=== PATIENT | female | born 1960 | race African-American/Black ===

== ENCOUNTER 2020-02-02 03:09 | Emergency (ER) | payer OTHER, SELFPAY ==
--- NOTE | ~2020-02-02 | CT_ITS ---
EXAMINATION: CT brain wo con INDICATION: Hallucinations COMPARISON: None TECHNIQUE: Standard unenhanced head CT. The dose-length product (DLP) was 605.33 mGy-cm. The mA was a djusted according to patient size. Iterative reconstruction technique was employed. FINDINGS: There is no intracranial hemorrhage, acute infarction, or abnormal mass lesion. The ventric les are normal. There is no abnormal mass effect or midline shift. The goddard-white matter differentiat ion is normal. The basal cisterns are patent. The orbits are normal. The paranasal sinuses, mastoids and calvarium are normal. IMPRESSION: 1. No acute intracranial abnormality. Reviewed, dictated and finalized at location A.
[2020-02-02 03:14] VITALS: BP 154/97; PULSE 88; RESP 13; TEMP 37.1; O2SAT 99
--- NOTE | 2020-02-02 03:52 | ECG_ITS ---
Measurements Intervals [place] Rate: 83 P: 58 PA: 158 QRS: 42 QRSD: 76 T: 23 QT: 371 QTc: 438 Interpretive Statements SINUS RHYTHM NONSPECIFIC T-WAVE ABNORMALITY- ANT/INF LEADS BASELINE WANDER- I, III, V6 BORDERLINE ECG Electronically Signed On 02-02-2020 8:55:53 CDT by Rudy Etienne D.O.
--- NOTE | 2020-02-02 03:53 | ED.GENADULT ---
HPI - General Adult General Chief complaint: Unspecified Stated complaint: hearing voices Time Seen by Provider: 02/02/20 03:15 Source: patient Mode of arrival: ambulatory Limitations: no limitations History of Present Illness HPI narrative: Patient is a 59-year-old female who presents to the emergency department with complaint of problems with her vagal nerve stimulator that she has for her seizure disorder. She states it has been going haywire . She feels as though it is stimulating when it should not and causing static and voices as well as music that she can hear. Patient has been weaned off her Keppra and is currently not on any medication. Patient denies any recent illness symptoms or other complaints at this time other than tight feeling in her legs and numb strange feeling across her body. She also reports having at least 2 seizures over the past week. MD complaint: Vagal nerve stimulator issue and hallucinations Related Data Allergies Allergy/AdvReac Type Severity Reaction Status Date / Time No Known Allergies Allergy Verified 02/02/20 03:22 Review of Systems Review of Systems: All systems reviewed & are unremarkable except as noted in HPI and below ENT: Reports nasal discharge Cardiovascular: Cardiovascular: Denies chest pain Respiratory: Respiratory: Reports cough (Occasional) Gastrointestinal: Gastrointestinal: Denies abdominal pain, Denies diarrhea and Denies vomiting Neurologic: Reports convulsions Psychiatric: Psychiatric: Reports auditory hallucinations PMFSH Past Medical History Medical History (Updated 02/02/20 @ 06:00 by Izzy Claire MD) Seizure disorder Surgical History Surgical History (Updated 02/02/20 @ 04:07 by Izzy Claire MD) History of cholecystectomy Family History Family History (Updated 11/11/17 @ 10:56 by DOCTOR UNKNOWN) Other Diabetes mellitus Family history of malignant neoplasm Social History Social History Smoking status: Never smoker Alcohol intake: never Exam Const: General: cooperative, no acute distress and alert Nutritional Appearance: well nourished Orientation/consciousness: patient oriented x3 Limitations: no limitations HENMT: Mouth: Yes lip normal and Yes moist mucous membranes Eyes: Conjunctivae: conjunctivae normal Pupils: Equal, round and reactive pupils present Resp: Effort & Inspection: normal respiratory effort Auscultation: clear to auscultation bilaterally Cardio: Rate: regular rate Rhythm: regular rhythm GI: GI Palp: Yes Soft to palpation and No Tenderness to palpation present (GI) Auscultation: normal bowel sounds Skin: General skin exam: normal color Neuro: General: patient oriented x3 Cognition (Neuro): normal cognition Speech: normal speech Extrem: General: normal to inspection, full ROM and no clubbing, cyanosis or edema Psych: Mental Status: mental status grossly normal Affect: normal affect Attitude: cooperative Course Course Emergency Course: Patient presents with concerns that stimulator for her seizure disorder is malfunctioning. Patient is reporting auditory hallucinations. Patient does not have any psychiatric history or other psychiatric symptomatology. Patient with no acute abnormalities noted on evaluation aside from mild elevation of creatinine kinase level, likely due to recent seizures this past week. Patient given acetaminophen for mild leg pain associated. Patient started back on Keppra per recommendation of her neurologist and patient is to follow-up in the office for further evaluation. Patient is stable for outpatient management at this time. Consultations Consultation #1: Case discussed with Dr. Pope, patient's neurologist, at length. Reviewed test results and patient symptomatology. Recommended restarting patient on Keppra 500 mg twice daily. Advised patient should call office on Tuesday to arrange for time to be seen when they can have the device rep come
--- NOTE | 2020-02-02 04:45 | PC.NURSE ---
Patient being taken to radiology at this time.
[2020-02-02 04:48] LABS: Basophils Percent Auto 0.4 % (0.2-1.2); Eosinophils Absolute Auto 0.1 K/mm3 (0-0.3); Eosinophils Percent Auto 0.7 % (0-4.4); Hematocrit 41.3 % (37.0-47.0); Hemoglobin 12.1 g/dL (12.0-15.0); Immature Granulocyte Absolute 0.03 K/mm3 (0.00-0.031); Immature Granulocyte Percent A 0.4 % (0-0.5); Lymphocytes Absolute Auto 1.32 K/mm3 (0.9-3.2); Lymphocytes Percent Auto 17.3 % (18.3-44.2); Mean Corpuscular HGB Conc 29.3 g/dl (32-36); Mean Corpuscular Hemoglobin 25.7 pg (26-34); Mean Corpuscular Volume 87.9 fl (80-100); Mean Platelet Volume 10.3 fl (7.4-10.4); Monocytes Absolute Auto 0.5 K/mm3 (0.1-0.6); Monocytes Percent Auto 6.8 % (2.6-8.5); Neutrophils Absolute Auto 5.7 K/mm3 (1.3-6.7); Neutrophils Percent Auto 74.4 % (45.5-73.1); Platelet Count Result 158 k/mm3 (150-375); Red Cell Distribution Width 14.3 % (11.5-14.5); White Blood Count 7.6 K/mm3 (4.5-10.0)
[2020-02-02 04:50] LABS: Add Urine Microscopic? YES; Appearance Urine Clear (Clear); Bilirubin Urine Negative (Negative); Blood Urine Negative (Negative); Color Urine Yellow (Yellow); Glucose Urine UA Negative (Negative); Ketones Urine 1+ mg/dL (Negative); Leukocyte Esterase Ur Negative LEU/UL (Negative); Mucus Urine Rare /lpf; Nitrate Urine Negative (Negative); Protein Urine 1+ mg/dL (Negative); RBC Urine 0-2 /hpf (0-2); Specific Grav Ur 1.027 (1.001-1.035); Squamous Epithelial Cell Urine Occasional /hpf (Few); WBC Urine 0-3 /hpf
[2020-02-02 04:59] LABS: Amphetamine Screen Urine Negative (Negative); Barbiturate Screen Urine Negative (Negative); Benzodiazepines Screen Urine Negative (Negative); Cannabinoid Screen Urine Negative (Negative); Cocaine Screen Urine Negative (Negative); Methadone Screen Urine Negative (Negative); Opiate Screen Urine Negative (Negative); Phencyclidine Screen Urine Negative (Negative)
[2020-02-02 05:15] LABS: Ethanol < 10 mg/dL (<10)
[2020-02-02 05:25] LABS: Alanine Aminotransferase 41 U/L (4-35); Albumin Level 4.4 g/dL (3.5-5.1); Alkaline Phosphatase 100 U/L (38-126); Aspartate Amino Transferase 44 U/L (14-36); Bilirubin,Total 0.7 mg/dL (0.2-1.3); Blood Urea Nitrogen 21 mg/dL (7-17); Calcium 9.3 mg/dL (8.4-10.2); Carbon Dioxide 24 mmol/L (22-30); Chloride 106 mmol/L (98-107); Creatine Kinase 438 U/L (30-135); Estimated Glomerular Filt Rate > 60; Glucose 91 mg/dL (65-105); Magnesium 2.3 mg/dL (1.6-2.3); Sodium 140 mmol/L (137-145)
--- NOTE | 2020-02-02 05:33 | PC.NURSE ---
Patient's daughter states that implant just woke her up out of her sleep, she like jerked. I would really like for someone to take a look at it to see what is going on with it. This nurse informs the patient and her daughter that I will inform the EDP. This nurse informed the patient that we are still waiting for results to come back. EDP informed.
[2020-02-02 05:35] VITALS: BP 155/100; PULSE 81; RESP 18; O2SAT 100
[2020-02-02] MEDS: ACETAMINOPHEN 500 MG TABLET 1000 MG PO (06:11)
[2020-02-02] MEDS: levETIRAcetam 500 MG TABLET PO (06:11)
[2020-02-02 06:31] VITALS: BP 155/95; PULSE 79; RESP 20; O2SAT 100
== END 2020-02-02 06:33 | disposition home or self-care (01) ==
PROVIDERS: Emergency Provider Emergency Medicine; PCP Family Medicine
DX: G40.909 Epilepsy, unspecified, not intractable, without status epilepticus (principal); R44.0 Auditory hallucinations; R94.31 Abnormal electrocardiogram [ECG] [EKG]
CPT/HCPCS: 36415; 70450; 80053; 80307; 81001; 82550; 83735; 84443; 85025; 93005; 99284; A9270

== ENCOUNTER 2021-09-07 10:06 | Emergency (ER) | payer OTHER, SELFPAY ==
[2021-09-07 11:03] VITALS: BP 154/98; PULSE 89; RESP 18; TEMP 36.3; O2SAT 99
[2021-09-07 12:41] VITALS: BP 131/87; PULSE 80; RESP 18; TEMP 36.8; O2SAT 100
[2021-09-07 13:42] LABS: Add Urine Microscopic? YES; Appearance Urine Cloudy (Clear); Bilirubin Urine Negative (Negative); Blood Urine Negative (Negative); Color Urine Yellow (Yellow); Glucose Urine UA Negative (Negative); Ketones Urine Negative (Negative); Leukocyte Esterase Ur 3+ LEU/UL (Negative); Mucus Urine Rare /lpf; Nitrate Urine Negative (Negative); Protein Urine Negative (Negative); Specific Grav Ur 1.016 (1.001-1.035); Squamous Epithelial Cell Urine Many /hpf (Few); Transitional Epi Cells Urine Occasional /hpf (None Seen); Urobilinogen Urine Negative mg/dL (<2.0); WBC Urine 31-50 /hpf
--- NOTE | 2021-09-07 14:21 | PC.NURSE ---
Patient came up to desk and began to argue at this nurse regarding the time it is taking to get her to a room. this nurse informed patient that we are seeing patients as quickly as we can. She states she wishes to leave and I informed her that it is her decision. She then sat back down. shortly after patients daughter came in and informed me they would be leaving. Sudhakar. Ambulated from ED.
== END 2021-09-08 02:34 | disposition left against medical advice (07) ==
LOC: ANHED 14:48
PROVIDERS: Emergency Provider Emergency Medicine
DX: R11.0 Nausea (principal)
CPT/HCPCS: 81001; 87086; 99199

== ENCOUNTER 2022-08-13 09:57 | Outpatient (CLI) | payer OTHER, SELFPAY ==
--- NOTE | ~2022-08-13 | US_ITS ---
EXAMINATION: US FNA w image guidance DATE: 08/13/2022 10:49 INDICATION: Right thyroid nodule. TECHNIQUE: The procedure and its benefits and risks were discussed with the patient. Risks specifically discusse d included bleeding. The patient verbalized understanding of the risks and agreed to proceed. The nec k was prepped and draped in the usual sterile manner. 1% lidocaine was used for local anesthesia. 6 passes were made with a 25G needle into the lesion under ultrasound guidance. There were no immedia te complications. FINDINGS: Grayscale ultrasound images demonstrate needles advanced into a 6.1 cm nodule in right thyroid lobe f or biopsy. IMPRESSION: 1. Ultrasound-guided fine needle aspiration of a 6.1 cm nodule in right thyroid lobe. Reviewed, dictated and finalized at location A. IMPRESSION: 1. Ultrasound-guided fine needle aspiration of a 6.1 cm nodule in right thyroi d lobe.
== END 2022-08-13 09:58 | disposition home or self-care (01) ==
PROVIDERS: PCP Family Medicine; Visit Provider Nurse Practitioner
DX: E04.1 Nontoxic single thyroid nodule (principal)
CPT/HCPCS: 10005; 88173; 88305

== ENCOUNTER 2025-09-13 11:42 | Outpatient (CLI) | payer OTHER, SELFPAY ==
--- NOTE | ~2025-09-13 | XR_ITS ---
EXAMINATION: XR humerus RT, 09/13/2025 12:10 [employer]INTER HISTORY: injury to right upper arm COMPARISON: No comparisons available. Findings: No acute fracture or malalignment. No significant degenerative changes. Soft tissues unremarkable. Impression: No acute fracture or malalignment. Reviewed, dictated and finalized at location P. GE PAINTER Impression: No acute fracture or malalignment.
--- OUTSIDE RECORDS SUMMARY | 2025-09-13 11:46 | XMS_ITS | Clinical Summary ---
Author Organization [facility] Care Team Providers Care Production Department Supervisor Name Role Phone Unavailable Primary Care Provider Unavailabl e Social History Tobacco Use Types Packs/Day Years Used Date Smoking Tobacco: Never Assessed Comments Unknown Sex and Gender Information Value Date Recorded Sex Assigned at Not on file Legal Sex Female 7:10 PM CDT Gender Identity Not on file Sexual Orientation Not on file Plan of Treatment Not on file
--- OUTSIDE RECORDS SUMMARY | 2025-09-13 11:46 | XMS_ITS | Clinical Summary ---
Author Organization [facility] Address [facility] [place] [address] Care Team Providers Care Systematic Theology Professor Name Role Phone Fartun Langston MD Primary Care Provider [phone] Allergies No known active allergies Medications levETIRAcetam 250 MG tablet Take 250 mg by mouth daily. 5 02/08/2018 Active Encounters Date Type Department Care Team Description 06/17/2025 12:39 PM CDT - 06/17/2025 11:59 PM T Hospital Encounter [facility] [place] [address] Eder Tipton MD Discharge Disposition: Home or Self Care (Routine Discharge) from Last 3 Months Family History Medical History Relation Comments Asthma Brother 2 Diabetes Brother 4 Diabetes Father Hypertension Father Kidney Disease Father Cancer Mother bone cancer Diabetes Mother Hypertension Mother Cancer Sister 1 breast Cancer Sister 2 uterine Hypertension Sister 2 Asthma Sister 3 Hypertension Sister 3 Hypertension Sister 4 Relation Status Comments Brother 1 Alive Brother 2 Alive Brother 3 Alive Brother 4 sepsis Daughter Alive Father (Age 59) kidney failure Maternal Grandfather Maternal Grandmother Mother (Age 88) cancer of bone s Paternal Grandfather Paternal Grandmother Sister 1 Alive Sister 2 Alive Sister 3 Alive Sister 4 Alive Social History Tobacco Use Types Packs/Day Years Used Date Smoking Tobacco: Never Smokeless Tobacco: Never Alcohol Use Standard Drinks/Week Comments No 0 (1 standard drink = 0.6 oz pur e alcohol) Comments No Sex and Gender Information Value Date Recorded Sex Assigned at Not on file Legal Sex Female 1:34 PM CDT Gender Identity Not on file Sexual Orientation Not on file Last Filed Vital Signs Vital Sign Reading Time Taken Comments Blood Pressure 142/85 02/24/2018 10:15 AM CDT le ft arm Pulse 64 02/24/2018 10:15 AM CDT Temperature 36.6 C (97.8 F) 02/24/2018 10:15 AM CDT Respiratory Rate - - Oxygen Saturation 100% 02/24/2018 10:15 AM CDT Inhaled Oxygen Concentration - - Weight 78.6 kg (173 lb 3.2 oz) 02/24/2018 10:15 AM CDT Height 149.9 cm (4' 11) 02/24/2018 10:15 AM CDT Body Mass Index 34.98 02/24/2018 10:15 AM CDT Plan of Treatment Health Maintenance Due Date Last Done Comments Colorectal Cancer Screening Colonoscopy (10 Years) 1958 Hepatitis C 1976 DTaP, Tdap and Td Vaccines ( 1 - Tdap) 1977 Mammogram Screening 1998 Pneumococcal Vaccine: 50+ Ye ars (1 of 1 - PCV) 2008 Zoster Vaccines (1 of 2) 2008 Dexa Scan (General) 2023 COVID-19 Vaccine ( - 2024-2 6 season) 2025 Influenza Adult (#1) 2025 RSV Immunization or 60+ Years (1 - 1-dose 75+ series) 2033 Hepatitis A Vaccines Aged Out No long er eligible based on patient's age to complete this topic Meningococcal B Vaccine Aged Out No l onger eligible based on patient's age to complete this topic Meningococcal Vaccine Aged Out No eden cee eligible based on patient's age to complete this topic RSV Immunizations Under 20 Months Aged Out No longer eligible based on patient's age to complete this topic Procedures Procedure Name Priority Date/Time Associated Diagnosis Comments CYTOLOGY GENERIC Routine 06/17/2025 12:0 0 AM CDT from Last 3 Months Results * CYTOLOGY GENERIC (06/17/2025 12:00 AM CDT) CYTOLOGY OTHER [facility] Department of Laboratory Medicine [address] [place] [address] , extension [phone] Pathology Report FNA Cytology Report Name: OPAL VINCENT Specimen #: [id number] Age: 7 1960 (Age: 65) Location: [facility] Sex: F Procedure Date: 06/17/2025 Hospital #: [id number] Date Received: 06/17/2025 Date Reported: 06/19/2025 Provider: EDER TIPTON MD Source: THYROID, RIGHT, FINE NEEDLE ASPIRATION Clinical History: RIGHT THYROID 4.5 CM FINAL DIAGNOSIS: Thyroid, right, fine-needle aspiration: - Satisfactory for evaluation. - Negative for malignant cells. - Consistent with a benign follicular nodule. Gross Description: PASSES MADE: 3 (plus one additional pass for potential AFIRMA testing) SPECIMEN RECEIVED: 3 Diff-Quik slides, 3 alcohol-fixed slides SLIDES PREPARED: 6 smears, all slides microscopically examined by a pathologist STAINS: Papanicolaou, Diff-Quik Initial cytologic screening, interpretation, and sign out were performed at [facility] [place], [address] [place] [address], [id number] Intraoperative Diagnosis: Thyroid, right, fine needle aspiration, immediate evaluation for adequacy - Episode 1: - Pass 1: adequate - Pass 2: scant - Pass 3: scant - Pass 4: Afirma Rapid on-site consultation performed by Dr. Sunny Gonzalez at [facility], [address] [place] [address] Electronically Signed Out Sunny Gonzalez M.D. [facility] 06/17/2025 06/17/2025 12:48 PM CDT Comment:THYROID, RIGHT, FINE NEEDLE ASPIRATION us Eder Tipton MD PATHOLOGY/CYTOLOGY ORDERABL ES Final Result [facility] [address] [place] [address], [id number] from Last 3 Months Insurance [place] Care Teams Systematic Theology Professor Relationship Specialty Start Date End Date Fartun Langston MD [address] [place] [address] PCP - General FAMILY PRACTICE 02/24/18
--- OUTSIDE RECORDS SUMMARY | 2025-09-13 11:46 | XMS_ITS | Clinical Summary ---
Author Organization [facility] [employer] Address [address] [place] [address] Care Team Providers Care Computer Systems Security Analyst Name Role Phone Gabby Davenport MD Unavailable [phone] Danielle Ordaz APRN-LICENSED MORTICIAN Unavailable [phone] Reyna Hoover Primary Care Provider [phone] Source Comments [facility],non-owned Affiliates and Associated Physician Practices is amultiple site organization consisting of ambulatory clinics and hospital sitesin [place], [place], [place] and [place]. This disclosure is being madepursuant to the Care Everywhere program and may not contain all information available regarding this patient. Last updated 18.[facility] [employer] Allergies No known active allergies Medications * Be aware that medications may not be up to date on this document. Alwaysverify current medications with the patient. 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, intractable, without status epilepticus (HCC) TAKE 2 TABLETS BY MOUTH EVERY DAY AT BEDTIME 60 tablet 5 5 Active eslicarbazepine (Aptiom) 600 MG tabletIndicatio ns: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, intractable, without status epilepticus (HCC) Take 2 (two) tablets by mouth at bedtime 60 tablet 5 5 025 Discontinued Active Problems Problem Noted Date Diagnosed Date 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 Hypothyroidism 06/10/2022 Seizures 02/01/2022 Abscess 01/26/2022 Blood glucose abnormal 01/26/2022 Altered mental status 07/31/2021 Seizure-like activity 07/31/2021 Complication associated with vagal nerve stimula tor 07/31/2021 Status post VNS (vagus nerve stimulator) placeme nt 09/07/2018 Epilepsy 06/08/2018 Resolved Problems Problem Noted Date Diagnosed Date Resolved Date 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 03/11/2023 Encounters Date Type Department Care Team Description 09/03/2025 Refill [facility] - Neurology [address] [place] [phone] Pablo Rich MD Refill Request 06/25/2025 Telephone [facility] - Neurology [address] [place] [phone] Belia Banuelos APRN-FOOD SERVICE LEAD Medication Issue 06/24/2025 Telephone [facility] - Hematology/Oncology [address] [place] [address] Gabby Davenport MD LABS ONLY (See notes) 06/21/2025 Telephone [facility] - Neurology [address] [place] [phone] Belia Banuelos WOOD POLE TREATER-FOOD SERVICE LEAD Medication Problem from Last 3 Months Family History Medical History Relation Name Comments CVA Father Cancer - Ovarian Mother Diabetes - Type 2 Mother Relation Name Status Comments Father Mother Social History Tobacco Use Types Packs/Day Years Used Date Smoking Tobacco: Never Smokeless Tobacco: Never Tobacco Cessation:Counseling Given: Not Answered Alcohol Use Standard Drinks/Week Comments No 0 (1 standard drink = 0.6 oz pur e alcohol) AUDIT-C Answer Date Recorded Q1: How often do you have a drink containing alcohol? Never 02/01/2022 Q2: How many drinks containi ng alcohol do you have on a typical day when you are drinking? Patient does not drink Q3: How often do you have si x or more drinks on one occasion? Never 02/01/2022 Comments No Sex and Gender Information Value Date Recorded Sex Assigned at Not on file Legal Sex Female 8:50 AM CDT Gender Identity Not on file Sexual Orientation Not on file Last Filed Vital Signs Vital Sign Reading Time Taken Comments Blood Pressure 177/95 05/08/2025 2:43 PM CDT Pulse 77 05/08/2025 2:43 PM CDT Temperature 36.4 C (97.6 F) 05/22/2024 10:26 AM CDT Respiratory Rate 18 05/22/2024 10:26 AM CDT Oxygen Saturation 98% 05/08/2025 2:43 PM CDT Inhaled Oxygen Concentration - - Weight 56.7 kg (125 lb) 05/21/2025 2:29 PM CDT Height 149.9 cm (4' 11) 05/21/2025 2:29 PM CDT Body Mass Index 25.25 05/21/2025 2:29 PM CDT Plan of Treatment Upcoming Encounters Date Type Department Care Team (Late st Contact Info) Description 12/10/2025 8:00 AM COMMUNITY AMBASSADOR Office Visit [facility] - Neurology [address] [place] [address], [facility] [place] [phone] Pablo Rich MD [address] [place] [address] [place] [phone] Health Maintenance Due Date Last Done Comments BONE DENSITY TESTING 1960 COLOGUARD (AGES 45-75) - COLON CA SCREENING 1960 COLON MONITORING 1960 COLONOSCOPY - COLON CA SCREENING 1958 CT COLONOGRAPHY - COLON CA SCREENING 1960 Colorectal Cancer Screening 1960 FIT - COLON CA SCREENING 1960 FLEX SIG - COLON CA SCREENING 1958 LIPID TESTING 1960 MAMMOGRAM 1960 HEPATITIS C SCREENING 04/06/1976 DTAP/TDAP/TD VACCINES (1 - Tdap) 1977 PNEUMOCOCCAL VACCINE 50+ (1 of 1 - PCV) 2008 ZOSTER VACCINE (1 of 2) 2008 DEPRESSION SCREENING 10/10/2024 COVID-19 VACCINE (4 - season) 2025 04/28/2022, 11/18/2021, 10/28/2021 INFLUENZA VACCINE (#1) 2025 SCREENING FOR DIABETES 05/08/2028 , 05/22/2024, 11/22/2023, Additional history exists Respiratory Syncytial Virus (RSV) Vaccine Pt: or over 60 yrs (1 - 1-dose 75+ series) 2033 HEPATITIS B VACCINE Aged Out No longe r eligible based on patient's age to complete this topic HIB VACCINE Aged Out No longer eligi ble based on patient's age to complete this topic HPV VACCINE Aged Out No longer eligi ble based on patient's age to complete this topic MENINGOCOCCAL (Group B) VACCINE SHARED DECISION-MAKING Aged Out No longer eligible based on patient's age to complete this topic MENINGOCOCCAL GROUPS A/C/Y/W VACCINE Aged Out No longer eligible based on patient's age to complete this topic Medical Devices Implanted Type Area Insecticide Maker Device Identifier Shelf Expiration Date Model / Serial / Lot Gntr Nrstm Vns Aspiresr Pls Modl 106 103 - [id number] Implanted:Qty: 1 on 08/04/2018 by Lavon Batres MD at [facility] Left: [employer]ck [employer] 12/07/2019 106 / [id number] / Lead Nrstm 43cm 2mm Vns Vagus Nrv Albertina 1 - [id number] Implanted:Qty: 1 on 08/04/2018 by Lavon Batres MD at [facility] Left: Neck [employer] 01/26/2021 [id number] / [id number] / Procedures Procedure Name Priority Date/Time Associated Diagnosis Comments COMPREHENSIVE METABOLIC PANEL Routine 05/08/2025 3:42 PM CDT Intractable generalized idiopathic epilepsy without status epilepticus (HCC) from Last 3 Months or Most Recently Relevant to Health Maintenance Results * (ABNORMAL) COMPREHENSIVE METABOLIC PANEL (05/08/2025 3:42 PM CDT) BUN 17 7 - 26 mg/dL 05/08/2025 5:11 PM [facility] Creatinine 0.85 0.56 - 0.96 mg/dL 05/08/2025 5:11 PM [facility] Sodium 130(L) 136 - 145 mmol/L 05/08/2025 5:11 PM [facility] Potassium 4.4 3.5 - 4.5 mmol/L 05/08/2025 5:11 PM [facility] Chloride 101 98 - 107 mmol/L 05/08/2025 5:11 PM [facility] CO2 23 22 - 29 mmol/L 05/08/2025 5:11 PM [facility] Glucose 100(H) 70 - 99 mg/dL 05/08/2025 5:11 PM [facility] Calcium 9.1 8.4 - 10.2 mg/dL 05/08/2025 5:11 PM [facility] Protein Total 7.2 6.0 - 8.3 g/dL 05/08/2025 5:11 PM [facility] Albumin 4.5 3.4 - 5.0 g/dL 05/08/2025 5:11 PM [facility] Bilirubin Total 0.2 0.2 - 1.2 mg/dL 05/08/2025 5:11 PM [facility] Alkaline Phosphatase 96 40 - 150 U/L 05/08/2025 5:11 PM [facility] ALT 15 5 - 55 U/L 05/08/2025 5:11 PM [facility] AST 16 5 - 34 U/L 05/08/2025 5:11 PM [facility] Anion Gap 6 6 - 16 05/08/2025 5:11 PM [facility] BUN/Creatinine Ratio 20 7 - 23 05/08/2025 5:11 PM CDT [facility] Osmolality Calculated 272(L) 275 - 295 mOsm/kg 05/08/2025 5:11 PM T [facility] Albumin/Globulin Ratio 1.7 1.1 - 2.3 05/08/2025 5:11 PM T [facility] eGFR by CKD-EPI 75(L) >=90 mL/min/1.7 3 m2 05/08/2025 5:11 PM T [facility] Comment:Estimated Glomerular Filtration Rate (eGFR) calculated using the CKD-EPI Creatinine Equation (2020), per the National Kidney Foundation and [place] [employer] of Nephrology recommendations. Blood BLOOD SPECIMEN / Unknown Lab Venipuncture / Unknown 05/08/2025 3:42 PM CDT 05/08/2025 4:31 PM CDT Belia Banuelos WOOD POLE TREATER-FOOD SERVICE LEAD LAB - CHEMISTRY ORDERABL ES Final Result [facility] [address] [place] [address], [facility] [phone] from Last 3 Months or Most Recently Relevant to Health Maintenance Insurance [facility] Advance Directives * Full Code (Latest Code Status on File) Date Activated Date Inactivated Comments 02/01/2022 12:22 PM 02/05/2022 12:55 PM * Full Code Date Activated Date Inactivated Comments 08/01/2021 1:06 AM 08/01/2021 1:08 PM Care Teams Computer Systems Security Analyst Relationship Specialty Start Date End Date Reyna Hoover [address] [place] [phone] PCP - General 05/08/25 Gabby Davenport MD [address] [place] [address] Hematology and Oncology 08/15/23 Danielle Ordaz APRN-LICENSED MORTICIAN [address] [facility] 2nd FLOOR BMT CLINIC [place], [place] [phone] Nurse Practitioner Nurse Practitioner 08/15/23
--- OUTSIDE RECORDS SUMMARY | 2025-09-13 11:46 | XMS_ITS | Encounter Summary ---
Author Organization [facility] Address [address] [place] [address] Phone Care Team Providers Care As400 Programmer Name Role Phone Unavailable Primary Care Provider Unavailabl e Encounter Details Date Type Department Care Team (Late st Contact Info) Description 09/20/2022 Telephone [facility] [place] [facility] - [facility] - [place] [address] [place] [address] Alejandra Wang APRN, CNP [address] [place] [address] Social History Tobacco Use Types Packs/Day Years Used Date Smoking Tobacco: Never Assessed Comments Unknown Sex and Gender Information Value Date Recorded Sex Assigned at Not on file Legal Sex Female 7:10 PM CDT Gender Identity Not on file Sexual Orientation Not on file documented as of this encounter Miscellaneous Notes * Telephone Encounter - Alejandra Wang APRN, CNP - 09/20/2022 2:25 PM FISHING GEAR MECHANIC Is this one of our patient's? I do not see any notes? Please address and respond to PT. Thank you ING GEAR MECHANIC * Telephone Encounter - Alejandra Wang APRN, CNP - 09/20/2022 2:25 PM FISHING GEAR MECHANIC ----- Message from Regina Cano sent at 09/20/2022 12:07 PM FISHING GEAR MECHANIC ----- Regarding: request for prescirption Sarah Savage I please have a prescription for a bariatric 2 wheeled walker for pt use. If you are agreeable,kindly fax me a prescription so I can give it to the pt and pt can get it to their vendor of choice. Thank you Regina Cano (Becky), PT C/NDT ING GEAR MECHANIC documented in this encounter Plan of Treatment Not on file documented as of this encounter Visit Diagnoses Not on filedocumented in this encounter
== END 2025-09-13 11:43 | disposition home or self-care (01) ==
DX: S49.91XA Unspecified injury of right shoulder and upper arm, initial encounter (principal); X58.XXXA Exposure to other specified factors, initial encounter
CPT/HCPCS: 73060